=== PATIENT | male | born 1995 | race Caucasian/White ===

== ENCOUNTER 2020-04-07 19:10 | Emergency (ER) | payer MEDICAID, SELFPAY ==
[2020-04-07 19:16] VITALS: BP 122/52; BP 131/77; PULSE 102; PULSE 97; RESP 18; TEMP 35.9; O2SAT 100; O2SAT 97; BMI 32.8
--- NOTE | 2020-04-07 20:39 | CT_ITS ---
EXAMINATION: CT SOFT TISSUE NECK WITHOUT CONTRAST CLINICAL INFORMATION: Throat pain. Neck pain. Concern for foreign body or stricture COMPARISON: None TECHNIQUE: Helical imaging was performed in the axial plane with generation of coronal and sagittal reformatted images. This CT examination was performed using dose optimization techniques as appropriate, variously including the following: *Automated exposure control *Adjustment of mA and/or kV according to patient size (this includes techniques or standardized protocols for targeted exams where dose is matched to indication/reason for exam; i.e. extremities or head) *Use of iterative reconstruction technique DLP: 866 mGy-cm FINDINGS: There is no radiopaque foreign body. No acute abnormality CT of the neck. No cervical adenopathy is identified. The parotid glands are homogeneous in attenuation. The submandibular glands are normal. No contour abnormality or pathologic enhancement is seen within the oral cavity or pharyngeal mucosal space. The laryngeal structures are normal. The parapharyngeal fat is preserved. No extra mucosal soft tissue mass or fluid collection is seen. No retropharyngeal fluid collection is seen. The thyroid gland is normal. The superior mediastinum is unremarkable. The lung apices are clear. The mastoid air cells and visualized portions of the paranasal sinuses are well-aerated. The temporomandibular joints are normal. The imaged portions of the brain parenchyma are unremarkable. CT/CT soft tissue neck wo con IMPRESSION: Normal CT of neck.
--- NOTE | 2020-04-07 21:51 | ED_ITS ---
HPI - General Adult General Chief complaint: General Medical Stated complaint: THROAT IRRITATION D/T FOREIGN OBJECT Time Seen by Provider: 04/07/20 20:17 Source: patient and EMS Mode of arrival: EMS Limitations: no limitations History of Present Illness HPI narrative: 24-year-old male presenting to the ED with complaints of feeling like someone is pressing a thumb against his throat for the past few weeks worse today after he was smoking weed and a piece felt like it went in the back of his throat. Her reports ?it felt like it went into my when pipe?. Reports he has had difficulty swallowing over the past few weeks. Reports his sister was exposed to COVID and is waiting on results although patient denies any COVID like symptoms including fevers, nausea/vomiting, sore throat, cough, abdominal pain, diarrhea or any other symptoms complaints or concerns. Related Data Allergies Allergy/AdvReac Type Severity Reaction Status Date / Time apple Allergy Unknown MOUTH Unverified 01/22/20 16:33 IRRITATION helm Allergy Unknown MOUTH Unverified 01/22/20 16:33 IRRITATION Penicillins [PENICILLINS] Allergy Unknown SKIN ON Unverified 01/22/20 16:33 HANDS PEEL penicillin V AdvReac Unknown Finger Verified 02/17/16 00:00 peeling Review of Systems Review of Systems: Constitutional : No Fever, No Chills, No fatigue, No Malaise ENT/Mouth : No sore throat, No runny nose, + Senation of FB in throat, + Difficulty swallowing Eyes: No Discharge Cardiovascular : No Chest Pain, No SOB Respiratory : No Cough, No Sputum, No Wheezing, No Smoke Exposure, No Dyspnea Gastrointestinal : No Nausea, No Vomiting, No Diarrhea Genitourinary : No irregular bleeding, No Dysuria, No Urinary Frequency, No Hematuria, No Urinary Incontinence, No Urgency, No Flank Pain, Musculoskeletal : No Myalgia Skin : No rash Neuro : No Headache Yes all other systems are reviewed and are negative [facility] Past Medical History Attestation statement: The following information was validated with the patient. Medical History Asthma Laryngitis Social History Social History Alcohol intake: never Smoking Status: Never smoker Smoked in Last 30 Days: No Use of substances other than those prescribed or required for medical reasons: Yes Substance Use Type: Marijuana Substance Use Frequency: Chronic Longstanding Advance Directives: No Advance Directives Information Provided: No Physical Exam Vital Signs: Vital Signs: Last Vital Signs Temp 98.6 F 04/07/20 22:00 Pulse 70 04/07/20 22:00 Resp 16 04/07/20 22:00 BP 115/56 L 04/07/20 22:00 Pulse Ox 97 04/07/20 22:00 Body Mass Index 32.8 vital signs have been reviewed as normal and appeared to be correct. Blood pressure normal. Heart rate normal. Respiration rate normal. Temperature normal. Oxygen saturation normal. Appearance: Alert. Oriented X3. No acute distress. Head: Normal external exam. Normocephalic. Eyes: PERRLA. EOMI. Conjunctiva and sclera normal. Eyelids normal. ENT: Pharynx normal. Uvula midline. Moist mucous membranes. No trismus noted. No drooling noted. No muffled voice noted. Neck: Normal inspection. Neck supple. FROM. No adenopathy. Thyroid Normal. No meningeal signs. No neck mass noted. CVS: Normal heart rate and rhythm. Heart sound normal. No murmurs noted. Pulses normal throughout. Respiratory: No respiratory distress. Painless inspiration. Breath sounds normal. No wheezes/rales/rhonchi noted. Chest nontender. No accessory muscle usage noted or decreased air movement noted. Back: Full range of motion noted. Skin: Skin warm and dry. Normal skin color. Normal skin turgor. No rash es/lesions/lacerations noted. Extremities: Extremities exhibit normal range of motion. Extremities nontender. Neuro: Oriented X 3. No motor deficit. No sensory deficit. Reflexes normal. Course Course Course Narrative: 20:40PM - 24yoM c No Sig PMHx presenting to the ED c c/o difficulty swallowing and feeling like a FB in throat over the past 3 weeks worse today after he accidentally swallowed a marijuana cigarette. - on exam patient is managing his own secretions, breathing is even and nonla bored in no apparent distress. No drooling/trismus noted. No lymphadenopathy noted. No neck mass noted. - Plan: CT scan of neck then re-evaluate Reevaluation(s) Reevaluation #1: CT scan of neck within normal limits no acute processes noted. No foreign bodies noted. Will DC home with instructions return if any new or worsening symptoms to follow-up with primary care provider. Patient understands agrees the plan. Time: 23:18 Medical Decision Making Medical Records Medical records reviewed: Yes I reviewed the patient's medical records. Imaging Data soft tissue neck ct scan : Attestation: I personally reviewed and interpreted this imaging study as follows: Radiologist's impression: IMPRESSION: Normal CT of neck. Discharge Plan Discharge Clinical Impression: Neck pain, Foreign body, swallowed Patient Disposition: Home, Self-Care Instructions: Foreign Body Ingestion (ED) Referrals: Mario Burrell [Physician] - 2 days Print Language: Indonesian
[2020-04-07 22:00] VITALS: BP 115/56; PULSE 70; RESP 16; TEMP 37; O2SAT 97
== END 2020-04-07 23:47 | disposition home or self-care (01) ==
PROVIDERS: Emergency Provider Emergency Medicine Emergency Medical Services
DX: R09.89 Other specified symptoms and signs involving the circulatory and respiratory systems (principal); M54.2 Cervicalgia; F12.90 Cannabis use, unspecified, uncomplicated
CPT/HCPCS: 70490; 99284

== ENCOUNTER 2021-02-23 14:06 | Emergency (ER) | payer MEDICAID, SELFPAY ==
[2021-02-23 14:33] VITALS: BP 131/82; PULSE 55; RESP 18; TEMP 36.6; O2SAT 99; BMI 32.8
[2021-02-23 17:29] LABS: MANUAL DIFF FLAG NO
[2021-02-23 17:34] LABS: Basophils Percent Auto 0.5 % (0-2); Eosinophils Absolute Auto 0.3 X10*3/uL (0.0-0.4); Eosinophils Percent Auto 4.3 % (0-4); Hematocrit 44.3 % (42-52); Hemoglobin 14.8 g/dl (14.0-18.0); Imm Gran Abs Auto 0.02 X10*3/uL (0.00-0.03); Imm Gran Pct Auto 0.3 % (0.0-0.4); Lymphocytes Percent Auto 40.1 % (20-40); Mean Corpuscular HGB Conc 33.4 g/dl (31.0-36.0); Mean Corpuscular Hemoglobin 28.9 pg (27.0-33.0); Mean Corpuscular Volume 86.5 fL (80-98); Mean Platelet Volume 10.4 fL (9.4-12.4); Monocytes Absolute Auto 0.8 X10*3/uL (0.1-1.2); Monocytes Percent Auto 10.9 % (2-11); Neutrophils Absolute Auto 3.3 X10*3/uL (2.0-8.3); Neutrophils Percent Auto 43.9 % (45-73); Platelet Count 217 X10*3/uL (160-400); Red Blood Count 5.12 X10*6/uL (4.60-5.80); Red Cell Distribution Width 13.2 % (11.0-16.0); White Blood Count 7.4 X10*3/uL (4.8-10.8)
[2021-02-23 17:39] LABS: IDNOW Serial# 9DD0AD1C; Strep A Nucleic Acid Positive (Negative)
[2021-02-23 18:00] LABS: COVID-19 Test Negative (Negative)
[2021-02-23 18:36] LABS: Alanine Aminotransferase 24 U/L (0-40); Alkaline Phosphatase 88 U/L (39-117); Anion Gap 13 (12-20); Aspartate Amino Transferase 21 U/L (5-37); Bilirubin Total 0.4 mg/dL (0.0-1.0); Blood Urea Nitrogen 7 mg/dL (9-16); Calcium 9.2 mg/dL (8.4-10.2); Carbon Dioxide 25 mmol/L (22-29); Chloride 104 mmol/L (96-108); Creatinine Clr Calc Pharmacy 140.2; Estimated Glomerular Filt Rate > 60; Glucose Random 97 mg/dL (60-115); Sodium 138 mmol/L (135-145); Total Protein 7.7 g/dL (6.5-8.0)
--- NOTE | 2021-02-23 20:07 | ED.GENADULT ---
HPI - General Adult General Chief complaint: General Medical Stated complaint: ABD PAIN SORE THROAT HEADACHE FEVER Time Seen by Provider: 02/23/21 20:01 History of Present Illness HPI narrative: Patient is a 25-year-old male presents today with having sore throat. Symptom has been ongoing for weeks. Patient claims getting worse. Minimal coughing. Patient had his coronavirus vaccine. No pain on swallowing. No diaphoresis. No fever no chills. Positive generalized malaise. Symptoms getting worse the last 2 days. Related Data Previous Rx's Medication Instructions Recorded acetaminophen 300 mg-codeine 30 mg 1 tab PO Q8H PRN #7 tab 04/07/20 tablet azithromycin 500 mg tablet See Rx Instructions PO .COMPLEX #3 04/07/20 tab clindamycin HCl 300 mg capsule 300 mg PO Q6H 10 Days #40 cap 02/23/21 Allergies Allergy/AdvReac Type Severity Reaction Status Date / Time apple Allergy Unknown MOUTH Verified 02/23/21 14:33 IRRITATION helm Allergy Unknown MOUTH Verified 02/23/21 14:33 IRRITATION Penicillins [PENICILLINS] Allergy Unknown SKIN ON Verified 02/23/21 14:33 HANDS PEEL penicillin V AdvReac Unknown Finger Verified 02/23/21 14:33 peeling Review of Systems Review of Systems: Positive coughing Positive generalized malaise No vomiting No diaphoresis All systems reviewed otherwise negative Yes all other systems are reviewed and are negative [facility] Past Medical History Attestation statement: The following information was validated with the patient. Medical History Asthma Laryngitis Social History Social History Alcohol intake: never Substance Use Type: Marijuana Advance Directives: No Advance Directives Information Provided: Yes Physical Exam Vital Signs: Vital Signs: Last Vital Signs Temp 97.9 F 02/23/21 14:33 Pulse 55 02/23/21 14:33 Resp 18 02/23/21 14:33 BP 131/82 02/23/21 14:33 Pulse Ox 99 02/23/21 14:33 Body Mass Index 32.8 Appearance: Alert. Oriented X3. No acute distress. Eyes: Pupils equal, round and reactive to light. ENT: Minimal redness noted in the posterior pharynx. Tonsils not enlarged. No exudate noted. Neck: Normal inspection. Neck supple. No lymph nodes noted. No crepitus CVS: Normal heart rate and rhythm. Pulses normal. Normal S1 and S2 Respiratory: No respiratory distress. Breath sounds normal. No Wheezing. No rales Abdomen: Soft and nontender. No rigidity. No distention. good BS x4 Skin: Skin warm and dry. Normal skin color. Normal skin turgor. Extremities: No lower extremity edema. Neurovascular intact to all extremities. No Lacerations. No Rash Neuro: Oriented X 3. No motor deficit. No sensory deficit. Moving all extermities. No slurred speech Medical Decision Making MDM Narrative Medical decision making narrative: Patient well-appearing. COVID test was negative. Rapid strep was positive. Will go ahead and give patient 10 days of clindamycin as patient has an allergy to penicillin. Motrin for pain. In stable condition. Lab Data Result diagrams: 02/23/21 17:22 02/23/21 18:12 Labs: Lab Results 02/23/21 02/23/21 02/23/21 Range/Units 17:22 17:22 17:22 WBC 7.4 (4.8-10.8) X10*3/uL RBC 5.12 (4.60-5.80) X10*6/uL Hgb 14.8 (14.0-18.0) g/dl Hct 44.3 (42-52) % MCV 86.5 (80-98) fL MCH 28.9 (27.0-33.0) pg MCHC 33.4 (31.0-36.0) g/dl RDW 13.2 (11.0-16.0) % Plt Count 217 (160-400) X10*3/uL MPV 10.4 (9.4-12.4) fL Immature Gran % (Auto) 0.3 (0.0-0.4) % Neut % (Auto) 43.9 L (45-73) % Lymph % (Auto) 40.1 H (20-40) % Shannon % (Auto) 10.9 (2-11) % Eos % (Auto) 4.3 H (0-4) % Baso % (Auto) 0.5 (0-2) % Lymph # (Auto) 3.0 (1.2-4.9) X10*3/uL Shannon # (Auto) 0.8 (0.1-1.2) X10*3/uL Eos # (Auto) 0.3 (0.0-0.4) X10*3/uL Baso # (Auto) 0.0 (0.0-0.2) X10*3/uL Abs Immat Gran (auto) 0.02 (0.00-0.03) X10*3/uL Absolute Neuts (auto) 3.3 (2.0-8.3) X10*3/uL Absolute Nucleated RBC 0.000 (0.0-0.012) X10*3/uL Nucleated RBC % (auto) 0.0 (0.0-0.2) /100WBC Sodium (135-145) mmol/L Potassium (3.3-5.1) mmol/L Chloride (96-108) mmol/L Carbon Dioxide (22-29) mmol/L Anion Gap (12-20) BUN (9-16) mg/dL Creatinine (0.5-1.4) mg/dL Estim Creat Clear Calc Estimated GFR Random Glucose (60-115) mg/dL Calcium (8.4-10.2) mg/dL Total Bilirubin (0.0-1.0) mg/dL AST (5-37) U/L ALT (0-40) U/L Alkaline Phosphatase (39-117) U/L Total Protein (6.5-8.0) g/dL Albumin (3.5-5.0) g/dL COVID-19 (ANDI) Negative (Negative) COVID-19 Clin Com See Note S. pyogenes GrpA TONY Positive A (Negative) 02/23/21 Range/Units 18:12 WBC (4.8-10.8) X10*3/uL RBC (4.60-5.80) X10*6/uL Hgb (14.0-18.0) g/dl Hct (42-52) % MCV (80-98) fL MCH (27.0-33.0) pg MCHC (31.0-36.0) g/dl RDW (11.0-16.0) % Plt Count (160-400) X10*3/uL MPV (9.4-12.4) fL Immature Gran % (Auto) (0.0-0.4) % Neut % (Auto) (45-73) % Lymph % (Auto) (20-40) % Shannon % (Auto) (2-11) % Eos % (Auto) (0-4) % Baso % (Auto) (0-2) % Lymph # (Auto) (1.2-4.9) X10*3/uL Shannon # (Auto) (0.1-1.2) X10*3/uL Eos # (Auto) (0.0-0.4) X10*3/uL Baso # (Auto) (0.0-0.2) X10*3/uL Abs Immat Gran (auto) (0.00-0.03) X10*3/uL Absolute Neuts (auto) (2.0-8.3) X10*3/uL Absolute Nucleated RBC (0.0-0.012) X10*3/uL Nucleated RBC % (auto) (0.0-0.2) /100WBC Sodium 138 (135-145) mmol/L Potassium 4.0 (3.3-5.1) mmol/L Chloride 104 (96-108) mmol/L Carbon Dioxide 25 (22-29) mmol/L Anion Gap 13 (12-20) BUN 7 L (9-16) mg/dL Creatinine 0.87 (0.5-1.4) mg/dL Estim Creat Clear Calc 140.2 Estimated GFR > 60 Random Glucose 97 (60-115) mg/dL Calcium 9.2 (8.4-10.2) mg/dL Total Bilirubin 0.4 (0.0-1.0) mg/dL AST 21 (5-37) U/L ALT 24 (0-40) U/L Alkaline Phosphatase 88 (39-117) U/L Total Protein 7.7 (6.5-8.0) g/dL Albumin 4.0 (3.5-5.0) g/dL COVID-19 (ANDI) (Negative) COVID-19 Clin Com S. pyogenes GrpA TONY (Negative) Discharge Plan Discharge Clinical Impression: Strep pharyngitis Patient Disposition: Home, Self-Care Instructions: Pharyngitis (ED) Prescriptions: New clindamycin HCl 300 mg capsule 300 mg PO Q6H 10 Days Qty: 40 RF: 0 No Action azithromycin 500 mg tablet See Rx Instructions PO .COMPLEX Qty: 3 RF: 0 acetaminophen-codeine 300-30 mg tablet 1 tab PO Q8H PRN (Reason: pain) Qty: 7 RF: 0 Referrals: [facility] [Physician] - 2 days Interventions: LWBS Worksheet Last Done: 02/23/21 16:11
== END 2021-02-23 20:28 | disposition home or self-care (01) ==
PROVIDERS: Emergency Provider Emergency Medicine Emergency Medical Services
DX: J02.0 Streptococcal pharyngitis (principal); J45.909 Unspecified asthma, uncomplicated; Z20.822 Contact with and (suspected) exposure to COVID-19; Z88.0 Allergy status to penicillin
CPT/HCPCS: 36415; 80053; 85025; 87635; 87651; 99282; 99283

== ENCOUNTER 2021-04-16 18:22 | Emergency (ER) | payer MEDICAID, SELFPAY ==
[2021-04-16 19:02] VITALS: BP 151/84; PULSE 82; RESP 18; TEMP 37.1; O2SAT 99; BMI 30.4
[2021-04-16 19:38] LABS: Strep A Nucleic Acid Negative (Negative)
[2021-04-16 20:15] LABS: Influenza A PCR NEGATIVE (Negative); Influenza B PCR NEGATIVE (Negative); Resp Syncy Virus RNA Qual PCR NEGATIVE (Negative); SARS COV2 PCR INHOUSE NEGATIVE (Negative)
--- NOTE | 2021-04-16 20:44 | ED_ITS ---
HPI - URI/Sore Throat General Chief Complaint: General Medical Stated Complaint: sore throat Time Seen by Provider: 04/16/21 20:34 Source: patient Mode of arrival: ambulatory Limitations: no limitations History of Present Illness HPI Narrative: Patient complaining of sore throat since 02/23/2021 when he was diagnosed with strep throat and was given clindamycin none complaining of still same kind of pain which did not get better, no fever no chills Related Data Previous Rx's Medication Instructions Recorded acetaminophen 300 mg-codeine 30 mg 1 tab PO Q8H PRN #7 tab 04/07/20 tablet azithromycin 500 mg tablet See Rx Instructions PO .COMPLEX #3 04/07/20 tab clindamycin HCl 300 mg capsule 300 mg PO Q6H 10 Days #40 cap 02/23/21 Allergies Allergy/AdvReac Type Severity Reaction Status Date / Time apple Allergy Unknown MOUTH Verified 02/23/21 14:33 IRRITATION helm Allergy Unknown MOUTH Verified 02/23/21 14:33 IRRITATION Penicillins [PENICILLINS] Allergy Unknown SKIN ON Verified 02/23/21 14:33 HANDS PEEL penicillin V AdvReac Unknown Finger Verified 02/23/21 14:33 peeling amoxicillin AdvReac Itching Verified 04/16/21 19:02 Review of Systems Review of Systems: Yes all other systems are reviewed and are negative PMFSH Past Medical History Medical History Asthma Laryngitis Social History Social History Alcohol intake: never Substance Use Type: Marijuana Advance Directives: No Physical Exam Vital Signs: Vital Signs: Last Vital Signs Temp 98.8 F 04/16/21 19:02 Pulse 82 04/16/21 19:02 Resp 18 04/16/21 19:02 BP 151/84 H 04/16/21 19:02 Pulse Ox 99 04/16/21 19:02 BMI result Body Mass Index 30.4 Appearance: Alert. Oriented X3. No acute distress. Anxious ENT: Pharynx normal. Slight erythema no exudate tonsils are normal in size Oral Mucosa moist Neck: Normal inspection. Neck supple. No cervical lymphadenopathy CVS: Normal heart rate and rhythm. Pulses normal. Respiratory: No respiratory distress. Equal air entry bilateral, no whee zing/rales/rhonchi Abdomen: Soft and nontender. Skin: Skin warm and dry. Normal skin color. Extremities: No lower extremity edema. Neuro: Oriented X 3. MDM - URI/Sore Throat Differential Diagnosis Differential diagnosis: Likely upper respiratory infection Lab Data Attestation: I reviewed the patient's lab results. Labs: Lab Results 04/16/21 04/16/21 Range/Units 19:10 19:10 Influenza Type A (PCR) NEGATIVE (Negative) Influenza Type B (PCR) NEGATIVE (Negative) RSV RNA Qual (PCR) NEGATIVE (Negative) SARS-CoV-2 RNA (RT-PCR) NEGATIVE (Negative) S. pyogenes GrpA TONY Negative (Negative) Discharge Plan Discharge Clinical Impression: Acute viral pharyngitis Patient Disposition: Home, Self-Care Instructions: Pharyngitis (ED) Additional Instructions: Do saline gargles Drink plenty of fluids At this time your COVID testing flu and RSV and strep all negative Follow-up with PCP if any concerns Prescriptions: No Action azithromycin 500 mg tablet See Rx Instructions PO .COMPLEX Qty: 3 RF: 0 acetaminophen-codeine 300-30 mg tablet 1 tab PO Q8H PRN (Reason: pain) Qty: 7 RF: 0 clindamycin HCl 300 mg capsule 300 mg PO Q6H 10 Days Qty: 40 RF: 0
== END 2021-04-16 21:05 | disposition home or self-care (01) ==
PROVIDERS: Emergency Medicine; Emergency Provider Internal Medicine
DX: J02.9 Acute pharyngitis, unspecified (principal); Z20.822 Contact with and (suspected) exposure to COVID-19
CPT/HCPCS: 0241U; 36415; 87651; 99283; 99284

== ENCOUNTER 2021-06-02 21:46 | Emergency (ER) | payer MEDICAID, SELFPAY ==
[2021-06-02 21:52] VITALS: BP 114/52; BP 123/76; PULSE 56; PULSE 74; RESP 16; TEMP 36.7; O2SAT 100; BMI 32.8
--- NOTE | 2021-06-02 22:02 | ED_ITS ---
HPI - Abdominal Pain General Chief Complaint: Abdominal Pain Stated Complaint: multiple complaints Time Seen by Provider: 06/02/21 21:53 Source: patient Mode of arrival: EMS Limitations: no limitations History of Present Illness MD elicited complaint: abdominal pain (shortness of breath, nausea) Pertinent past history: other (asthma as a child, possible COVID exposures at work) Onset (ago): day(s) (on and off for 5 days) Pain Consistency: intermittent Location: epigastric Severity: mild Quality: other ('spasming ) Radiation: none Migration to: no migration Exacerbating factors: eating Relieving factors: nothing Context: history of similar episodes (worse at work, also started again tonight after eating half a burrito) Associated symptoms: nausea and other (felt short of breath at one point as well) Related Data Previous Rx's Medication Instructions Recorded acetaminophen 300 mg-codeine 30 mg 1 tab PO Q8H PRN #7 tab 04/07/20 tablet azithromycin 500 mg tablet See Rx Instructions PO .COMPLEX 04/07/20 #3 tab clindamycin HCl 300 mg capsule 300 mg PO Q6H 10 Days #40 cap 02/23/21 famotidine 20 mg tablet (Pepcid) 20 mg PO DAILY PRN #30 tab 06/03/21 ondansetron 4 mg disintegrating 4 mg PO Q8H PRN #20 tab 06/03/21 tablet Allergies Allergy/AdvReac Type Severity Reaction Status Date / Time apple Allergy Unknown MOUTH Verified 02/23/21 14:33 IRRITATION helm Allergy Unknown MOUTH Verified 02/23/21 14:33 IRRITATION Penicillins Allergy Unknown SKIN ON Verified 02/23/21 14:33 [PENICILLINS] HANDS PEEL penicillin V AdvReac Unknown Finger Verified 02/23/21 14:33 peeling amoxicillin AdvReac Itching Verified 04/16/21 19:02 Review of Systems Review of Systems Constitutional : No Weight loss, No Fever, No Chills ENT/Mouth : No sore throat, No Rhinorrhea Eyes: No Swelling, No Redness Cardiovascular : No Chest Pain, pos SOB, No Edema Respiratory : No Cough, No Sputum, No Wheezing Gastrointestinal : Positive Nausea, no Vomiting, no Diarrhea, positive abdominal Pain, No Hematochezia, No Melena Genitourinary : No Dysuria, No Urinary Frequency, No Hematuria, No Urgency Musculoskeletal : No joint pain, No Myalgias, No Joint Swelling Skin : No Skin Lesions, No rash Neuro : pos Weakness, No Numbness, No Dizziness, No Headache Psych : No Anxiety/Panic, No Depression Heme/Lymph: No Bruising, No Lymphadenopathy Endocrine : No Polyuria, No Polydipsia All other systems reviewed and are negative. 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 Oriented X3. No acute distress. Eyes: Pupils equal, round and reactive to light. ENT: Pharynx normal. Neck: Normal inspection. Neck supple. CVS: Normal heart rate and rhythm. Pulses normal. Respiratory: No respiratory distress. Breath sounds normal. Abdomen: Soft and nontender. Skin: Skin warm and dry. Normal skin color. Normal skin turgor. Extremities: No lower extremity edema. No calf ttp Neuro: Oriented X 3. No motor deficit. No sensory deficit. 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 His abdomen is benign. He is also worred about black mold at his job. Will obtain basic labs, given IVF, albuterol INH trial, COVID swab. Dispo per results and findings. Lab Data Result diagrams: 06/02/21 22:50 06/02/21 23:04 Labs: Lab Results 06/02/21 06/02/21 06/02/21 Range/Units 22:34 22:50 23:04 WBC 8.8 (4.8-10.8) X10*3/uL RBC 5.09 (4.60-5.80) X10*6/uL Hgb 14.8 (14.0-18.0) g/dl Hct 44.2 (42.0-52.0) % MCV 86.8 (80.0-98.0) fL MCH 29.1 (27.0-33.0) pg MCHC 33.5 (31.0-36.0) g/dl RDW 12.9 (11.0-16.0) % Plt Count 224 (160-400) X10*3/uL MPV 10.2 (9.4-12.4) fL Immature Gran % (Auto) 0.2 (0.0-0.4) % Neut % (Auto) 40.5 L (45-73) % Lymph % (Auto) 44.2 H (20-40) % [place] % (Auto) 9.6 (2-11) % Eos % (Auto) 4.9 H (0-4) % Baso % (Auto) 0.6 (0-2) % Lymph # (Auto) 3.9 (1.2-4.9) X10*3/uL [place] # (Auto) 0.8 (0.1-1.2) X10*3/uL Eos # (Auto) 0.4 (0.0-0.4) X10*3/uL Baso # (Auto) 0.1 (0.0-0.2) X10*3/uL Abs Immat Gran (auto) 0.02 (0.00-0.03) X10*3/uL Absolute Neuts (auto) 3.6 (2.0-8.3) x10*3/uL Absolute Nucleated RBC 0.000 (0.0-0.012) X10*3/uL Nucleated RBC % (auto) 0.0 (0.0-0.2) /100WBC Sodium 134 L (135-145) mmol/L Potassium 3.3 (3.3-5.1) mmol/L Chloride 104 (96-108) mmol/L Carbon Dioxide 25 (22-29) mmol/L Anion Gap 8 L (12-20) BUN 12 (9-16) mg/dL Creatinine 0.82 (0.5-1.4) mg/dL Estim Creat Clear Calc 148.8 Estimated GFR > 60 Random Glucose 100 (60-115) mg/dL Calcium 8.7 (8.4-10.2) mg/dL Magnesium 2.3 (1.6-2.6) mg/dL Total Bilirubin 0.2 (0.0-1.0) mg/dL Direct Bilirubin < 0.2 (0.0-0.5) mg/dL AST 23 (5-37) U/L ALT 28 (0-40) U/L Alkaline Phosphatase 79 (39-117) U/L Total Protein 6.9 (6.5-8.0) g/dL Albumin 3.5 (3.5-5.0) g/dL Lipase 19 (8-78) U/L COVID-19 (ANDI) Negative (Negative) COVID-19 Clin Com See Note Discharge Plan Discharge Clinical Impression: Nausea Abdominal pain Qualifiers: Abdominal location: epigastric Qualified Code(s): R10.13 - Epigastric pain Patient Disposition: Home, Self-Care Instructions: Acute Nausea and Vomiting (ED), Abdominal Pain (ED) Additional Instructions: return to ED for any worsening symptoms or concerns NEGATIVE COVID TEST USE INHALER 2 PUFFS EVERY 4 HOURS NEEDED FOR WHEEZING Prescriptions: New famotidine [Pepcid] 20 mg tablet 20 mg PO DAILY PRN (Reason: abdominal discomfort) Qty: 30 0RF ondansetron 4 mg tablet,disintegrating 4 mg PO Q8H PRN (Reason: nausea and vomiting) Qty: 20 0RF No Action azithromycin 500 mg tablet See Rx Instructions PO .COMPLEX Qty: 3 0RF Rx Instructions: take 500 mg today (day 1), then 250 mg for 4 days (days 2-5) acetaminophen-codeine 300-30 mg tablet 1 tab PO Q8H PRN (Reason: pain) Qty: 7 0RF clindamycin HCl 300 mg capsule 300 mg PO Q6H 10 Days Qty: 40 0RF Referrals: [facility] [Primary Care Provider] - 3 days (IF NOT BETTER) Stand Alone Forms: Work/School Release [facility] Past Medical History Medical History Asthma Laryngitis Social History Social History Alcohol intake: never Substance Use Type: Marijuana Advance Directives: No Advance Directives Information Provided: No
[2021-06-02] MEDS: 0.9 % Sodium Chloride 1,000 ML 999 ML IVCONT (22:52)
[2021-06-02] MEDS: ondansetron HCL 4 MG/2 ML VIAL IVPUSH (22:53)
[2021-06-02] MEDS: Famotidine/PF 20 MG/2 ML VIAL IVPUSH (22:53)
[2021-06-02 22:54] LABS: MANUAL DIFF FLAG NO
[2021-06-02 22:55] LABS: Basophils Absolute Auto 0.1 X10*3/uL (0.0-0.2); Basophils Percent Auto 0.6 % (0-2); Eosinophils Absolute Auto 0.4 X10*3/uL (0.0-0.4); Eosinophils Percent Auto 4.9 % (0-4); Hematocrit 44.2 % (42.0-52.0); Hemoglobin 14.8 g/dl (14.0-18.0); Imm Gran Abs Auto 0.02 X10*3/uL (0.00-0.03); Imm Gran Pct Auto 0.2 % (0.0-0.4); Lymphocytes Absolute Auto 3.9 X10*3/uL (1.2-4.9); Lymphocytes Percent Auto 44.2 % (20-40); Mean Corpuscular HGB Conc 33.5 g/dl (31.0-36.0); Mean Corpuscular Hemoglobin 29.1 pg (27.0-33.0); Mean Corpuscular Volume 86.8 fL (80.0-98.0); Mean Platelet Volume 10.2 fL (9.4-12.4); Monocytes Absolute Auto 0.8 X10*3/uL (0.1-1.2); Monocytes Percent Auto 9.6 % (2-11); Neutrophils Absolute Auto 3.6 x10*3/uL (2.0-8.3); Neutrophils Percent Auto 40.5 % (45-73); Platelet Count 224 X10*3/uL (160-400); Red Blood Count 5.09 X10*6/uL (4.60-5.80); Red Cell Distribution Width 12.9 % (11.0-16.0); White Blood Count 8.8 X10*3/uL (4.8-10.8)
[2021-06-02 23:01] LABS: COVID-19 Test Negative (Negative)
[2021-06-02] MEDS: Albuterol Sulfate 90 MCG 8 GM INHALER 2 PUFF INHALE (23:16)
[2021-06-02 23:17] VITALS: PULSE 52; RESP 20; O2SAT 97
[2021-06-02 23:26] VITALS: BP 102/50; PULSE 52; RESP 18; O2SAT 100
[2021-06-02 23:29] LABS: Alanine Aminotransferase 28 U/L (0-40); Albumin Level 3.5 g/dL (3.5-5.0); Alkaline Phosphatase 79 U/L (39-117); Anion Gap 8 (12-20); Aspartate Amino Transferase 23 U/L (5-37); Bilirubin Direct < 0.2 mg/dL (0.0-0.5); Bilirubin Total 0.2 mg/dL (0.0-1.0); Blood Urea Nitrogen 12 mg/dL (9-16); Calcium 8.7 mg/dL (8.4-10.2); Carbon Dioxide 25 mmol/L (22-29); Chloride 104 mmol/L (96-108); Creatinine Clr Calc Pharmacy 148.8; Estimated Glomerular Filt Rate > 60; Glucose Random 100 mg/dL (60-115); Lipase 19 U/L (8-78); Magnesium 2.3 mg/dL (1.6-2.6); Potassium 3.3 mmol/L (3.3-5.1); Sodium 134 mmol/L (135-145); Total Protein 6.9 g/dL (6.5-8.0)
[2021-06-03 00:10] LABS: Amphetamine Screen Urine Not Detected (Not Detect); Barbiturates, Urine Not Detected (Not Detect); Benzodiazepines Screen Urine Not Detected (Not Detect); Cannabinoid Screen Urine POSITIVE (Not Detect); Cocaine Screen Urine Not Detected (Not Detect); Fentanyl, urine Not Detected (Not Detect); Opiate Screen Urine Not Detected (Not Detect); Phencyclidine Screen Urine Not Detected (Not Detect)
== END 2021-06-03 00:45 | disposition home or self-care (01) ==
PROVIDERS: Emergency Provider Emergency Medicine
DX: R11.0 Nausea (principal); R10.13 Epigastric pain; Z20.822 Contact with and (suspected) exposure to COVID-19; F12.90 Cannabis use, unspecified, uncomplicated
CPT/HCPCS: 36415; 80048; 80076; 80307; 83690; 83735; 85025; 87635; 94640; 96361; 96374; 96375; 99284; J2405